=== PATIENT | male | born 1995 | race Two or more races ===

== ENCOUNTER 2024-11-10 22:51 | Emergency (ER) | payer OTHER ==
[~2024-11-10] VITALS: Ht 180.3 cm; Wt 134.1 kg
[2024-11-10 23:00] VITALS: TEMP 98
--- NOTE | 2024-11-10 23:47 | ED.PDOC ---
Musculoskeletal HPI Comments 29 year old male presents to ER with complaints of left arm pain x 1 hour. Patient states he felt sudden onset of burning pain to left bicep when he went to lift a garage door while chasing a suspect and working as a copywriting intern. He rates his current pain a 10/10 to left bicep with radiation down left arm. Denies use of medications for current symptoms. Patient presents to ER ambulatory on arrival, with steady gait, in mild distress. Denies numbness/tingling, shortness of breath, chest pain or any further symptoms/complaints Chief Complaint: Upper Extremity Time Seen by MD: 23:19 Primary Care Provider: UNKNOWN Reviewed Notes: Nurses Notes, Medications, Allergies Allergies: Coded Allergies: NO KNOWN ALLERGIES (Unverified , 11/10/24) Home Meds Active Scripts Ibuprofen (Ibuprofen) 800 Mg Tab, 1 TAB PO TID PRN, #30 TAB 0 Refills Prov:CAROLYN SHERMAN 11/10/24 Information Source: Patient Mode of Arrival: Ambulatory Past Medical History PAST MEDICAL HISTORY: Denies Surgical History: Denies all surgeries Family History Family History: Unknown Social History Smoker: Non-Smoker Alcohol: Denies ETOH Use Drugs: Denies Drug Use Lives In: Home Constitutional: denies: chills, diaphoresis, fatigue, fever, malaise, sweats, weakness, others EENTM: denies: blurred vision, double vision, ear bleeding, ear discharge, ear drainage, ear pain, ear ringing, eye pain, eye redness, hearing loss, mouth pain, mouth swelling, nasal discharge, nose bleeding, nose congestion, nose pain, photophobia, tearing, throat pain, throat swelling, voice changes, others Respiratory: denies: cough, hemoptysis, orthopnea, SOB at rest, shortness of breath, SOB with excertion, stridor, wheezing, others Cardiovascular: denies: chest pain, dizzy spells, diaphoresis, Dyspnea on exertion, edema, irregular heart beat, left arm pain, lightheadedness, palpitations, PND, syncope, others Gastrointestinal: denies: abdomen distended, abdominal pain, blood streaked bowels, constipated, diarrhea, dysphagia, difficulty swallowing, hematemesis, melena, nausea, poor appetite, poor fluid intake, rectal bleeding, rectal pain, vomiting, others Genitourinary: denies: burning, dysuria, flank pain, frequency, hematuria, incontinence, penile discharge, penile sore, pain, testicle pain, testicle swelling, urgency, others Neurological: denies: dizziness, fainting, headache, left sided numbness, left sided weakness, numbness, paresthesia, pre-existing deficit, right sided numbness, right sided weakness, seizure, speech problems, tingling, tremors, weakness, others Musculoskeletal: reports: others (As stated in HPI) Integumetry: denies: bruises, change in color, change in hair/nails, dryness, laceration, lesions, lumps, rash, wounds, others Allergic/Immunocompromised: denies: Difficulty Healing, Frequent Infections, Hives, Itching, others Hematologic/Lymphatic: denies: anemia, blood clots, easy bleeding, easy bruising, swollen glands, others Endocrine: denies: excessive hunger, excessive sweating, excessive thirst, excessive urination, flushing, intolerance to cold, intolerance to heat, unexplained weight gain, unexplained weight loss, others Psychiatric: denies: anxiety, bipolar disorder, depression, hopeless, panic disorder, schizophrenia, sleepless, suicidal, others Physical Exam General Appearance: Mild Distress (Due to left bicep pain), Obese HEENT: PERRL/EOMI Neck: Full Range of Motion, Non-Tender, Normal Respiratory: Chest Non-Tender, Lungs Clear, No Accessory Muscle Use, No Respiratory Distress, Normal Breath Sounds Cardiovascular: No Murmur, No Gallop, Regular Rate/Rhythm Breast Exam: Deferred Gastrointestinal: NOT DONE Genitalia: Deferred Pelvic: Deferred Rectal: Deferred Extremities: Normal capillary refill Neurologic: Alert, No Sensory Deficits Cerebellar Function: Normal Reflexes: Normal Skin: Dry, Warm, Other (Brian deformity with associated ecchymosis noted to left bicep. TTP to left bicipital groove and decreased supination strength on left noted. Pulses intact) Peripheral Pulses: 2+ carotid (R), 2+ carotid (L), 2+ Radial (R), 2+ Radial (L), 2+ Brachial (R), 2+ Brachial (L) Lymphatic: No Adenopathy Was a procedure done? Was a procedure done?: No Sedation Sedation?: No Differential Diagnosis EXT Differential Diagnosis: Fracture, Dislocation, Neurovascular injury X-Ray, Labs, Meds, VS Vital Signs Date Time Temp Pulse Resp B/P (MAP) Pulse Ox O2 Delivery O2 Flow Rate FiO2 11/10/24 23:00 98.0 87 12 154/92 (112) 97 98.0 PATIENT: MARKEL DIAZ IIIT: [id number] UNIT: [id number] : 1995 LOC: ER ROOM / BED: / AGE / SEX: 29 / M ADM STATUS: REG ER SERVICE 11 ORDERING PHYSICIAN: CAROLYN SHERMAN PROCEDURE(s): LHUM - L HUMERUS XRAY REASON: left humerus/left proximal bicep pain r/o avulsion fracture ORDER NUMBER(s): [id number], ACCESSION NUMBER(s): [id number] CLINICAL INDICATION: left humerus/left proximal bicep pain r/o avulsion fracture TECHNIQUE: XY L HUMERUS XRAY Comparison: None FINDINGS/IMPRESSION: : There is no evidence of acute fracture or dislocation. Soft tissues are unremarkable. ATED BY: OWEN SOUTH MD DICTATED DATE/TIME: 11/11/2438 SIGNED BY: OWEN SOUTH MD SIGNED DATE/TIME: 11/11/2438 CC: Left humerus x-ray reviewed Toradol 60 mg IM ordered Left arm sling applied Discussed with patient that he would benefit from MRI of left shoulder for further evaluation Patient neurovascularly intact Workman's comp paperwork filled out Advised to follow up with PCP, workman's comp PCP and orthopedics in 1-2 days Patient verbalized understanding and agreeable with current plan of care Advised to return to ER immediately if symptoms worsen Images Reviewed?: Images reviewed and evaluated by me Time of 1ST Reevaluation: 23:24 Reevaluation 1ST: N/A Patient Education/Counseling: Diagnosis, Treatment, Prognosis, Need For Follow Up Family Education/Counseling: No Family Present Departure 1 Departure Time of Disposition: 23:50 Impression: Primary Impression: Biceps rupture, proximal Qualified Codes: S46.212A - Strain of muscle, fascia and tendon of other parts of biceps, left arm, initial encounter Disposition: 01 HOME / SELF CARE / HOMELESS Condition: Stable e-Prescriptions Ibuprofen (Ibuprofen) 800 Mg Tab 1 TAB PO TID PRN, #30 TAB 0 Refills Prov: CAROLYN SHERMAN 11/10/24 Discharged With: Significant Other Critical Care Note Critical Care Time?: No Stability Stability form required: No Heart Score Heart Score: Heart Score Response (Comments) Value History N/A 0 EKG N/A 0 Age N/A 0 Risk Factors N/A 0 Troponin N/A 0 Total 0 CAROLYN SHERMAN Nov 10, 2024 23:47
[2024-11-10] MEDS ORDERED: IBUP-1456 PO (23:53)
--- NOTE | 2024-11-11 00:41 | DVH ---
CLINICAL INDICATION: left humerus/left proximal bicep pain r/o avulsion fracture TECHNIQUE: XY L HUMERUS XRAY Comparison: None FINDINGS/IMPRESSION: : There is no evidence of acute fracture or dislocation. Soft tissues are unremarkable.
[2024-11-11] MEDS: KETOROLAC TROMETH 60MG/2ML VIAL IM ONE (01:02)
[2024-11-11 01:07] VITALS: BP 135/82
[2024-11-11 01:08] VITALS: PULSE 97; RESP 18; O2SAT 100
== END 2024-11-11 01:15 | disposition home or self-care (01) ==
LOC: ER 23:01
DX: S46.212A Strain of muscle, fascia and tendon of other parts of biceps, left arm, initial encounter (principal); Z79.899 Other long term (current) drug therapy; X58.XXXA Exposure to other specified factors, initial encounter; Y93.89 Activity, other specified; Y92.89 Other specified places as the place of occurrence of the external cause; Y99.0 Civilian activity done for income or pay
CPT/HCPCS: 73060; 96372; 99283; J1885